=== PATIENT | female | born 1960 | race Caucasian/White ===

== ENCOUNTER → 2017-04-09 | Outpatient (CLI) | payer BC ==
--- NOTE | 2017-04-09 15:37 | US ---
EXAMINATION TYPE: US venous doppler duplex LE DATE OF EXAM: 04/09/2017 2:58 PM COMPARISON: NONE CLINICAL HISTORY: R422.42 Edema Bilateral Legs. Bilateral calf cramping x 1 week, right > left, and noted after taking Cipro SIDE PERFORMED: Bilateral TECHNIQUE: The lower extremity deep venous system is examined utilizing real time linear array sonog rosio with graded compression, doppler sonography and color-flow sonography. VESSELS IMAGED: Common Femoral Vein Deep Femoral Vein Greater Saphenous Vein * Femoral Vein Popliteal Vein Small Saphenous Vein * Proximal Calf Veins (* superficial vessels) Right Leg: Negative for DVT Left Leg: Negative for DVT IMPRESSION: Grayscale, color doppler, spectral doppler imaging performed of the deep veins of the lo wer extremities. There is normal flow, compressibility, vascular waveforms bilaterally. No evident deep venous thrombosis at or above the knees.
== END | disposition home or self-care (01) ==
LOC: RADUSWWP 14:18
PROVIDERS: ATTEND Family Medicine
DX: M79.661 Pain in right lower leg (principal); R60.9 Edema, unspecified
CPT/HCPCS: 93970